=== PATIENT | female | born 1940 | race African-American/Black ===

== ENCOUNTER 2025-03-29 22:04 | Emergency (ER) | payer BC, MEDICARE ==
[~2025-03-29] VITALS: Ht 162.6 cm; Wt 50.0 kg
[2025-03-29 22:06] VITALS: O2SAT 100
[2025-03-30 00:10] LABS: BASOPHILS % 0.4 % (0.0-2.0); EOSINOPHILS % 0.2 % (0.0-5.0); HEMATOCRIT. 29.0 % (36.0-48.0); HEMOGLOBIN. 9.7 g/dL (12.0-16.0); LYMPHOCYTES % 8.5 % (20.0-50.0); MEAN PLATELET VOLUME 9.6 fl (7.4-10.4); MONOCYTES % 5.7 % (2.0-8.0); NEUTROPHILS % 85.2 % (40.0-76.0); PLATELET 355 x1000/uL (130-400); RED BLOOD CELL COUNT 3.20 mill/uL (4.2-5.4); RED CELL DISTRIBUTION WIDTH 14.4 % (11.6-14.6)
[2025-03-30 00:16] LABS: INR 1.1
[2025-03-30 00:21] LABS: CREATININE 1.8 mg/dL (0.6-1.0)
[2025-03-30 00:22] LABS: ETHANOL BLOOD < 10 mg/dL (<10); UREA NITROGEN BLOOD 27 mg/dL (9-23)
[2025-03-30 01:54] LABS: CLARITY URINE CLEAR (CLEAR); COLOR URINE DARK YELLOW (YELLOW); GLUCOSE URINE NEGATIVE (NEGATIVE); KETONES URINE TRACE (NEGATIVE); LEUKOCYTE ESTERASE URINE TRACE (NEGATIVE); NITRITE URINE NEGATIVE (NEGATIVE); OCCULT BLOOD URINE NEGATIVE (NEGATIVE); PH URINE 6.0 (4.5-8.0); PROTEIN URINE 1+ (NEGATIVE); SPECIFIC GRAVITY URINE 1.018 (1.005-1.030); UROBILINOGEN URINE 1.0 E.U./dL (0.2-1.0)
[2025-03-30 02:05] LABS: *AMPHETAMINES SCREEN URINE NEGATIVE (NEGATIVE); *BENZODIAZEPINES SCREEN URINE NEGATIVE (NEGATIVE)
[2025-03-30 02:06] LABS: *BARBITURATES SCREEN URINE NEGATIVE (NEGATIVE); *COCAINE SCREEN URINE NEGATIVE (NEGATIVE); CANNABINOID URINE SCREEN NEGATIVE (NEGATIVE); ECSTASY MDMA SCREEN URINE NEGATIVE (NEGATIVE); METHADONE URINE SCREEN NEGATIVE (NEGATIVE); OPIATES URINE SCREEN PRESUMPTIVE POSITIVE (NEGATIVE); PHENCYCLIDINE URINE SCREEN NEGATIVE (NEGATIVE)
[2025-03-30] MEDS ORDERED: VANCOMYCIN 1G PREMIX 200 ML IV NR (02:15)
[2025-03-30] MEDS ORDERED: NA PHOS,M-B/NA PHOS,DI-BA ENEMA 118ML PR NR (02:15)
[2025-03-30] MEDS ORDERED: ACETAMINOPHEN 1000MG/100ML 100 ML IV NR (02:30)
[2025-03-30 02:31] LABS: BACTERIA URINE TRACE; SQUAMOUS EPITHELIAL CELL URINE FEW /lpf (RARE/1+)
[2025-03-30] MEDS: SODIUM CHLORIDE 0.9% 500 ML IV ONE (03:05)
[2025-03-30] MEDS: PIPERACILLIN/TAZO 3.375G/50ML 50 ML IV NR (03:05)
[2025-03-30] MEDS ORDERED: ONDANSETRON HCL 4MG/2ML INJ IV PRN (03:45)
[2025-03-30] MEDS ORDERED: ACETAMINOPHEN 325MG TABLET PO PRN ×2 (03:45)
[2025-03-30] MEDS ORDERED: CLONIDINE 0.1MG TABLET PO PRN (03:45)
[2025-03-30] MEDS ORDERED: IPRATROPIUM/ALBUTEROL 0.5-3(2.5)MG/3ML NEB HHN PRN (03:45)
[2025-03-30] MEDS ORDERED: DEXT 5%/0.9% NACL 1,000 ML IV SCH (04:00)
[2025-03-30] MEDS ORDERED: DEXTROSE 50% WATER 50ML SYRINGE IV PRN (04:00)
[2025-03-30] MEDS ORDERED: LACTULOSE 20G/30ML UDC PO SCH (04:00)
[2025-03-30] MEDS ORDERED: BLOOD SUGAR DIAGNOSTIC STRIP TEST SCH (04:00)
[2025-03-30] MEDS ORDERED: POTASSIUM CHLORIDE 20MEQ TABLET SR PO NR (04:00)
[2025-03-30] MEDS ORDERED: FAMOTIDINE 20MG/2ML VIAL IV SCH (04:00)
[2025-03-30 04:25] VITALS: BP 142/84; PULSE 94; RESP 19; TEMP 37.3; O2SAT 98
[2025-03-30] MEDS ORDERED: IOHEXOL-300 100 ML BOTTLE ONE (07:00)
[2025-03-30] MEDS ORDERED: POLYETHYLENE GLYCOL 3350 (17GM) 1 DOSE PACK PO SCH (09:00)
[2025-03-30] MEDS ORDERED: ENOXAPARIN 30MG/0.3ML SYR SUBCUT SCH (09:00)
[2025-03-30] MEDS ORDERED: PIPERACILLIN/TAZO 3.375G/50ML 50 ML IV SCH (09:00)
== END 2025-03-30 04:30 | disposition short-term general hospital (02) ==
LOC: ER 22:04 → EDBEDREQTM 03-30 02:44 → EDBEDREQ 03-30 02:44 → ER 03-30 04:30
DX: K82.8 Other specified diseases of gallbladder (principal); K56.41 Fecal impaction; R65.10 Systemic inflammatory response syndrome (SIRS) of non-infectious origin without acute organ dysfunction; R10.84 Generalized abdominal pain; Z90.710 Acquired absence of both cervix and uterus; Z79.899 Other long term (current) drug therapy
CPT/HCPCS: 80048; 80320; 83690; 85025; 85610; 86850; 86900; 86901; 36415 ×2; 99291; 80305; 81003; 82962; 83605; 87040; 87086; 84145; 74177; 93005; 96365; Q9967; J2543; J3370; A4606; G0480; J0131